=== PATIENT | female | born 1965 | race Caucasian/White ===

== ENCOUNTER → 2018-12-15 | Outpatient (CLI) | payer OTHER ==
[~2018-12-15] VITALS: Ht 157.5 cm; Wt 88.8 kg
[~2018-12-15] MED LIST: AMLODIPINE BESY10 MG PO; CHANTIX0.5 MG PO; HUMALOG100 UNIT/1 SUBQ; HYDROCODON-ACE1 EAC7 PO; LEVEMIR SUBQ; MEDROLDOSEPACK PO; METFORMIN HCL500 MG PO; METHOCARBAMOL500 M2 PO; MOBIC15 MG PO; PRAVACHOL 20 MG20 M1 PO; TRAMADOL 50 MG50 MG PO; VALSARTAN-HCTZ1 EAC4 PO
[2018-12-15 14:15] VITALS: BP 157/76
--- NOTE | 2018-12-15 14:17 | NUR ---
Pain Clinic Assessment: 1. History of Osteoarthritis: Right Lower Extremity Right Upper Extremity History of Rheumatoid Arthritis: Not Applicable 2. Height: 5 ft. 2 in. 157.5 cm. Weight: 195.8 lb. oz. 88.814 kg. Patient's BMI: 35.8 3. Vital Signs: BP: 157/76 Pulse: 87 Resp: 16 Temp: 02 Sat: 97 ECG Mon: 4. Pain Intensity: 9 5. Fall Risk: Dizziness: N Needs help standing or walking: N Fallen in the last 3 months: N Fall risk comments: 6. Patient on Blood Thinner: None 7. History of Hypertension: Y 8. Opioid Therapy greater than 6 weeks: N Opiate Contract Signed: 9. Risk Assessment Tool Provided: 10. Functional Assessment Tool: 79/70 11. Recreational Drug Use: Never Drug Type: Tobacco Use: Current Every Day Smoker Tobacco Type: Cigarettes Amount or Packs/day: 3/4 How Many Years: 20 Alcohol Use: Yes Frequency: Special Occasions Quant: 2-3
== END | disposition home or self-care (01) ==
LOC: PAIN 08:05
DX: M25.551 Pain in right hip (principal); G89.29 Other chronic pain; I10 Essential (primary) hypertension; M19.90 Unspecified osteoarthritis, unspecified site; E11.9 Type 2 diabetes mellitus without complications; Z79.4 Long term (current) use of insulin; Z90.49 Acquired absence of other specified parts of digestive tract; Z98.890 Other specified postprocedural states

== ENCOUNTER → 2019-01-03 | Outpatient (CLI) | payer OTHER ==
[~2019-01-03] VITALS: Ht 157.5 cm; Wt 91.2 kg
[~2019-01-03] MED LIST changes: +LEVEMIR100 UNIT/1 SUBQ; +NORCO 10-325 T1 EACH PO; +TYLENOL EXTRA500 MG PO; +XARELTO10 MG PO
[2019-01-03 10:56] VITALS: BP 161/85
--- NOTE | 2019-01-03 11:05 | NUR ---
Pain Clinic Assessment: 1. History of Osteoarthritis: Right Lower Extremity Right Upper Extremity History of Rheumatoid Arthritis: Not Applicable 2. Height: 5 ft. 2 in. 157.5 cm. Weight: 201.0 lb. oz. 91.173 kg. Patient's BMI: 36.8 3. Vital Signs: BP: 161/85 Pulse: 95 Resp: 18 Temp: 02 Sat: 98 ECG Mon: 4. Pain Intensity: 6 5. Fall Risk: Dizziness: N Needs help standing or walking: N Fallen in the last 3 months: Y Fall risk comments: 6. Patient on Blood Thinner: None 7. History of Hypertension: Y 8. Opioid Therapy greater than 6 weeks: N Opiate Contract Signed: 9. Risk Assessment Tool Provided: 10. Functional Assessment Tool: 79/70 11. Recreational Drug Use: Never Drug Type: Tobacco Use: Current Every Day Smoker Tobacco Type: Cigarettes Amount or Packs/day: 1 How Many Years: 20 Alcohol Use: Yes Frequency: Special Occasions Quant:
--- NOTE | 2019-02-02 08:26 | HPC ---
[facility] [address] [place] [address] PAIN MANAGEMENT CONSULTATION Name: AMELIA GARCIA Room #: REG JESSE Ivette#: [id number] Admission: 01/03/19 Attend Phys: Long Mckeon MD Discharge: Date of : 69 Report #: [id number] THIS REPORT FOR: //name// CC: Long Mcodnnell DATE OF SERVICE: 01/03/2019 CHIEF COMPLAINT: Pain in the right hip. HISTORY: The patient is a 53-year-old female, who has been seen in the pain clinic. She has pain and discomfort involving her right hip. She notes that the pain has worsened over the last 6 months. 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 She is quite busy. She does quite a bit of walking. She has noticed that her pain is quite limiting. It involves her right hip and the pain radiates into the right groin area. She notes that her pain is problematic with going from a sitting to a standing position. She has some burning, shooting, aching, and pulling discomfort. She notes that it is sharp, it significantly limits her ability to engage in activities of daily living. Work is extremely difficult because of the severity of the pain. She has been seen in the Emergency Room. X-rays showed an arthritic component to her pain. She has not seen a surgeon. She has difficulty lifting her leg and sometimes has to lift her leg because of the weakness and numbness. The patient underwent an injection in the right hip joint under fluoroscopy. She returns today stating that her pain continues to be quite problematic. She is unable to walk and feels that she would not be able to continue with her job because of the severity of pain. CURRENT MEDICATIONS: Chantix 0.5 mg, the patient has just recently received this medication; Pravachol 20 mg, Glucophage 1000 mg daily, insulin subcutaneous sliding scale, Levemir subcutaneous sliding scale, amlodipine 10 mg daily, valsartan/hydrochlorothiazide 320/12.5, and Ultram 50 mg q.4-6 hours p.r.n. pain. ALLERGIES: No known drug allergies. PAIN CLINIC ASSESSMENT AND PQRS: 1. History of osteoarthritis: The patient has some arthritis in the lower extremity on the right as well as the right upper extremity. She has not been treated for rheumatoid arthritis. 2. Pain intensity is 6/10. 3. Fall history: The patient has not fallen since we saw her last. 4. Blood thinner. The patient is not on a blood thinning medication. 5. Hypertension. The patient is being treated for hypertension. 6. Opioids greater than 6 weeks. The patient is not on an opioid regimen. 7. Risk assessment tool, low for opioid use. 8. Functional assessment tool, 70/70. [address] [address] PAIN MANAGEMENT CONSULTATION Name: AMELIA GARCIA Room #: REG CL Ivette#: [id number] Admission: 01/03/19 Attend Phys: Long Mckeon MD Discharge: Date of : 69 Report #: [id number] 9. Recreational drug use. The patient denies. 10. Tobacco: The patient smokes cigarettes 1 pack a day for the last 20 years. The patient is using Chantix to help decrease her smoking. 11. Alcohol. The patient occasionally uses alcoholic beverages. PHYSICAL EXAMINATION: GENERAL: The patient is a well-developed, well-nourished black female. She is alert and oriented x 3. Her affect is appropriate. Speech is fluent. Height is 5 feet 2 inches, weight is 201 pounds, and BMI is 36.8. VITAL SIGNS: Blood pressure is 161/85, pulse is 95, respiratory rate is 18, and room air saturation 98%. HEENT: Normocephalic, atraumatic. Extraocular eye muscles intact. Sclerae nonicteric. Mucous membranes are moist. NECK: Without adenopathy or JVD. HEART: Regular rate. ABDOMEN: Nontender. Bowel sounds present. LUNGS: Generally, clear to auscultation. MUSCULOSKELETAL: Upper extremity muscle strength is judged to be 5-/5 for the major muscle groups in the upper extremity. She has some pain, a well-healed scar in the right shoulder. The patient has an antalgic gait. Internal and external rotation of the patient's hip does cause some increased pain in the hip area as well as pain radiating into the groin. She has some difficulty lifting her leg because of the pain on the right side. Internal and external rotation cause increased discomfort into the groin area. IMPRESSION: 1. Right hip pain described by x-ray in the Emergency Room, has severe osteoarthritis. 2. Hypertension. 3. Diabetes. 4. Hypercholesterolemia. 5. Tobacco use. RECOMMENDATIONS: We have discussed treatment options with the patient. At this juncture, she feels that her pain continues to be quite problematic. I think to have the patient see a hip specialist, an Orthopedics would be reasonable. We have called Dr. Marino Canas at [facility]. She has an orthopedic surgeon and has quite a bit of expertise in hip joints. We will have the patient follow up with him in the near future. Hopefully, things continue to improve. [facility] [address] [place] [address] PAIN MANAGEMENT CONSULTATION Name: AMELIA GARCIA Room #: REG JESSE Steele#: [id number] Admission: 01/03/19 Attend Phys: Long Mckeon MD Discharge: Date of : 69 Report #: [id number] We would like to thank you for letting us to participate in her care. We hope she continues to improve as time goes on. <ELECTRONICALLY SIGNED> By: Long Mckeon MD 02/02/19825 56 7 Long Mckeon MD /[facility]
== END ==
LOC: PAIN 06:58
DX: M25.551 Pain in right hip (principal); I10 Essential (primary) hypertension; E11.9 Type 2 diabetes mellitus without complications; E78.00 Pure hypercholesterolemia, unspecified; F17.200 Nicotine dependence, unspecified, uncomplicated; Z79.899 Other long term (current) drug therapy; Z79.891 Long term (current) use of opiate analgesic

== ENCOUNTER → 2019-02-05 | Outpatient (CLI) | payer OTHER ==
[~2019-02-05] VITALS: Ht 157.5 cm; Wt 88.5 kg
[2019-02-05 09:42] LABS: URINE BILIRUBIN NEGATIVE (Negative); URINE BLOOD TRACE (Negative); URINE CLARITY CLEAR; URINE COLOR YELLOW; URINE GLUCOSE-RANDOM* NEGATIVE (Negative); URINE KETONES NEGATIVE (Negative); URINE LEUKOCYTES-REFLEX NEGATIVE (Negative); URINE NITRITE-REFLEX NEGATIVE (Negative); URINE PROTEIN (DIPSTICK) NEGATIVE (Negative); URINE SPECIFIC GRAVITY <= 1.005 (1.005-1.035); URINE UROBILINOGEN 0.2 E.U./dl (0.2-1.0)
[2019-02-05 10:05] LABS: HEMATOCRIT 35.2 % (37.0-47.0); HEMOGLOBIN 10.4 gm/dL (12.0-15.0); MCH 20.6 pg (26.0-34.0); MCHC 29.7 g/dL (28.0-37.0); MCV 69.5 fL (80.0-100.0); RBC 5.05 mil/uL (4.20-5.00); RDW 19.3 % (10.5-14.5); WBC 14.8 thou/uL (4.0-11.0)
[2019-02-05 10:09] LABS: ALBUMIN 3.6 g/dL (3.4-5.0); CREATININE 0.4 mg/dL (0.6-1.0); POTASSIUM 3.8 mmol/L (3.5-5.1)
[2019-02-05 10:10] LABS: PROTIME 10.3 Seconds (9.3-11.4)
[2019-02-06 00:06] LABS: GLYCOHEMOGLOBIN (HGB A1C) 6.6 % (4.8-5.6)
--- NOTE | 2019-02-06 07:51 | EKG ---
[address] [address] ELECTROCARDIOGRAM REPORT Name: GARCIAAMELIA Room #: PRE IN [facility]#: [id number] Admission: Attend Phys: Isaak Maya MD Discharge: Date of : 69 Report #: [id number] THIS REPORT FOR: //name// [facility] Test Date: 2019-02-05 Test Time: 09:17:03 Pat Name: AMELIA GARCIA Department: Room: Gender: F Research Associate Molecular Biology: ASHELY BASURTO : 1965 Requested By: Isaak Maya Order Number: [id number] MD: Carroll Hernandez Measurements Intervals Carlotta Rate: 77 P: 73 [place]: 138 QRS: 23 QRSD: 100 T: 39 QT: 376 QTc: 426 Interpretive Statements Sinus rhythm Normal tracing No previous ECG available for comparison Electronically Signed On 02-06-2019 7:51:20 CDT by Carroll Hernandez [email or web address] <ELECTRONICALLY SIGNED> By: Carroll Hernandez MD, [facility] 02/06/19 0751 [id number] [id number] Carroll Hernandez MD, FACC /EPI
== END ==
LOC: PAC 09:19 → EDSTATUS 02-12 07:47 → PRE 02-12 08:14
PROVIDERS: Orthopaedic Surgery
DX: M16.11 Unilateral primary osteoarthritis, right hip (principal); R94.31 Abnormal electrocardiogram [ECG] [EKG]

== ENCOUNTER 2019-03-02 07:14 | Inpatient (IN) | payer OTHER ==
[2019-03-02] VITALS (9 sets, daily range): BP systolic 110–141; BP diastolic 44–63
[~2019-03-02] VITALS: Ht 157.5 cm; Wt 88.5 kg
[~2019-03-02 07:14] MED LIST changes: -NORCO 10-325 T1 EACH PO; -XARELTO10 MG PO
--- NOTE | 2019-03-02 13:10 | NUR ---
ASSESSMENT-PT LIVES AT HOME AND HER SON AND DTR STAY WITH HER. HER SISTER HAS BEEN STAYING THERE TOO. PT SAYS SHE HAS MANY STEPS IN HER PLCE AND PLANS TO GO STAY AT HER DTR'S PLACE WHERE THERE WILL BE LESS STEPS. PT WILL NEED A ROLLER WALKER FOR HOME. PT HAD BEEN USING A CANE PRIOR TO ADMISSION. AWAITING PHY THERAPY REC FOR DC PLANNING. ANTICIPATE PT WILL START OUTPT THERAPY NEXT WEEK. FOLLOWING.
--- NOTE | 2019-03-02 19:41 | NUR ---
PATIENT ADMITTED FROM OR, DR TIAN DID RIGHT TOTAL HIP REPLACEMENT, WITH SABINA DRESSING IN PLACE, ALSO HEMOVAC IN PLACE, PARVEZ HOSE, AND SCD'S IN PLACE. PATIENT HAS LEFT HAND IV WITH 1/2 NS AT 100CC/HR, PATIENT RECEIVE 1 IV ANTIBIOTIC THIS SHIFT. PATIENT CONTINUES TO C/O PAIN, RECEIVED THIS SHIFT MORPHINE 2 MG IV X2 AND OXYCODONE 1 TABLET X 1. PATIENT WORKED WITH PT/HAFSA AND WALKED ABOUT 15 FEET, PATIENT WAS ASSISTED UP TO BSC X 1. ADMISSION COMPLETED, BUT CAREPLAN WILL BE DONE BY KIRSITN/DELMER/ASHELY.POST OP VITALS SIGNS DONE ARE ARE STABLE. WILL CONTINUE TO MONITOR.
[2019-03-03 00:05] VITALS: BP 98/56
[2019-03-03 04:00] VITALS: BP 110/50
[2019-03-03 05:35] LABS: HEMATOCRIT 24.6 % (37.0-47.0); HEMOGLOBIN 7.4 gm/dL (12.0-15.0); MCH 20.9 pg (26.0-34.0); MCV 69.7 fL (80.0-100.0); RBC 3.53 mil/uL (4.20-5.00); RDW 19.4 % (10.5-14.5); WBC 22.8 thou/uL (4.0-11.0)
[2019-03-03 06:27] VITALS: BP 90/48
--- NOTE | 2019-03-03 07:32 | NUR ---
PATIENT ALERT AND ORIENTED X4. UP TO BSC WITH ONE ASSIST AND WALKER. KNEE HIGH PARVEZ HOSE AND SCD'S IN PLACE. IVF X2 BAGS PER ORDER. HOWEVER, PATIENT'S BLOOD PRESSURE WAS A LITTLE LOW AND IVF WAS EXTENDED TO ANOTHER LITER THROUGHOUT THE NIGHT WHICH IS STILL HANGING AT TIME OF NOTE. AM NURSE NOTIFIED. BS MONITORED PER ORDER. MEDICATED FOR PAIN THROUGHOUT THE NIGHT. PATIENT COOPERATIVE AND PLEASANT. TAKEN OFF OF 02NC WITH SAT OF 93 ON ROOM AIR. HEMOVAC IN PLACE WITH OUTPUT OF 110ML DURING THE NIGHT. RESTING QUIETLY. NO C/O NAUSEA. WILL MONITOR.
--- NOTE | 2019-03-03 10:55 | O ---
[facility] [place] [address] [place] [address] OPERATIVE REPORT Name: AMELIA GARCIA Room #: 442-P ADM IN M.R.#: [id number] Admission: 03/02/19 Attend Phys: Isaak Maya MD Discharge: Date of : 69 Report #: [id number] THIS REPORT FOR: //name// CC: Isaak Mcdonnell DATE OF SERVICE: 03/02/2019 PREOPERATIVE DIAGNOSIS: Degenerative osteoarthritis, right hip. POSTOPERATIVE DIAGNOSIS: Degenerative osteoarthritis, right hip. PROCEDURE: Right total hip arthroplasty. HISTORY: This 54-year-old female has rather severe progressive right hip pain with clinical and radiographic evidence of severe degenerative arthritis. She is heavy and has a rather small hip joint and as a result has rather excessive wear with significant joint space narrowing and spurring. Findings are confirmed on preoperative MRI scan. We have discussed more conservative treatment options. The patient and family feel she is simply unable to function and work effectively. 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 Given this, she has elected to go ahead with total hip arthroplasty. DESCRIPTION OF PROCEDURE: The patient was taken to the operating room where she was placed under general anesthesia. Prophylactic intravenous antibiotics were administered. She was turned to the left lateral decubitus position. The right hip, thigh and leg were meticulously prepped and draped. A slightly curving posterolateral skin incision was made. Exposure was established with some difficulty given her very large size and abundant adipose tissue. The fascia was exposed and incised. The gluteus was split gently in a longitudinal fashion. The posterior aspect of the hip was visualized. Short external rotators and capsule were taken down and preserved and tagged with several sutures. The hip was dislocated posteriorly and marked degenerative change on both the femoral head and acetabulum was noted. The femoral canal was prepared with reamers and hand broaches. A size 12 Kim and Nephew stem seemed to fit most appropriately. The trial broach was advanced to an appropriate level and the calcar was trimmed down to that level. The trial broach was removed and attention directed to the acetabulum. Adequate exposure was established, although with significant difficulty given her very large size. She also had moderate oozing throughout the entire procedure, making visualization somewhat difficult. The acetabulum was sequentially reamed, gradually advancing to a 46 mm reamer. Her small size made preparation of the acetabulum difficult. I needed to medialize to get sufficient rim to engage even the smallest acetabulum, which is a size 46. A trial reduction looked good and the permanent cup was brought onto the field. This is a Kim and Nephew size 46 3-hole [facility] [address] [place] [address] OPERATIVE REPORT Name: AMELIA GARCIA Room #: 442-P [facility] IN M.R.#: [id number] Admission: 03/02/19 Attend Phys: Isaak Maya MD Discharge: Date of : 69 Report #: [id number] STIKTITE shell. This was impacted in alignment with her true acetabulum, positioned this at about 45 degrees off of vertical and about 20 degrees of anteversion. It seated nicely and appeared to be secure. Two cancellous screws were placed through the apex holes engaging good periacetabular bone adding to the stability. A cup liner was then inserted using the 28 mm diameter liner and positioning the 20-degree elevated rim at about the 10 o'clock posterior position. This was snapped into place and seated nicely and appeared to be secure. The size 12 high offset femoral stem was selected. This was impacted into the canal. It seated nicely and appeared to be secure. A trial reduction was performed and a +0 neck length seemed to fit most appropriately. This resulted in good leg length and appropriate range of motion, alignment, and stability. The trial head was removed and the permanent 28 mm Oxinium head with a +0 neck length was selected. This was impacted on the Olivier taper. It seated nicely and appeared to be secure. The hip was reduced. Alignment, range of motion, stability and leg length were assessed and felt to be satisfactory. The capsule and short external rotators were then repaired back to bone using #1 FiberWire suture passed through small drill holes in the greater trochanter. This resulted in a satisfactory hip stability. A single Hemovac was left in the wound exiting through a separate stab incision. The fascia was then closed with multiple #1 Vicryl sutures. The abundant adipose layer was closed with multiple 0 Monocryl sutures in a running fashion. The skin was closed with skin rah. A sterile dressing was applied. The patient was then awakened and returned to recovery room in good condition. Her estimated blood loss was 700 mL. She received some albumin and fluids during the procedure and appeared to be stable. Postoperative hemoglobin is pending at the time of this dictation. <ELECTRONICALLY SIGNED> By: Isaak Maya MD 03/03/19 1055 [id number] [id number] Isaak Maya MD /nt
--- NOTE | 2019-03-03 13:07 | NUR ---
PT A&OX4. IV INTACT IN L HAND. AMBULATING WITH WALKER AND ASSIST X1. SABINA DRSG WITH A FEW SM DRIED AREAS. ALTERNATING PO PAIN MEDS. STATES PAIN AT 8/10 AT THIS TIME. HEMOVAC REOVED THIS AM. FAMILY AT THE BEDSIDE. WILL CONT POC.
[2019-03-03 16:48] VITALS: BP 101/49
[2019-03-03 20:40] VITALS: BP 122/35
--- NOTE | 2019-03-04 04:13 | NUR ---
PATIENT ALERT AND ORIENTED X4. UP WITH ONE ASSIST AND WALKER TO THE BATHROOM. MEDICATED FOR RIGHT HIP PAIN DURING THE NIGHT AND ABLE TO SLEEP. BS MONITORED PER ORDER. COOPERATIVE WITH CARE. RESTING QUIETLY. WILL MONITOR.
[2019-03-04 04:25] VITALS: BP 129/56
[2019-03-04 05:31] LABS: HEMATOCRIT 23.5 % (37.0-47.0); MCH 20.7 pg (26.0-34.0); MCHC 29.9 g/dL (28.0-37.0); MCV 69.3 fL (80.0-100.0); RBC 3.39 mil/uL (4.20-5.00); RDW 19.8 % (10.5-14.5); WBC 18.3 thou/uL (4.0-11.0)
[2019-03-04 08:53] VITALS: BP 129/45
[2019-03-04 16:41] VITALS: BP 130/47
--- NOTE | 2019-03-04 18:39 | NUR ---
PT HAS WORKED WITH THERAPY AMBULATING THE HALLS. GIVEN PRN PAIN MED THAT HAS BEEN EFFECTIVE. APPETITE GOOD. ON ROOM AIR, PICCO DRAIN INTACT. USES ICE BAG. SBA ASSIST WHEN PATIENT USES BATHROOM. PT PLEASANT AND COOPERATIVE WITH CARE.
[2019-03-04 19:15] VITALS: BP 120/50
[2019-03-05] VITALS (7 sets, daily range): BP systolic 121–143; BP diastolic 41–57
--- NOTE | 2019-03-05 06:30 | NUR ---
PATIENT ALERT AND ORIENTED X4. UP TO BATHROOM WITH SBA AND WALKER. MEDICATED FOR PAIN DURING THE NIGHT WITH GOOD RESULTS. PATIENT SLEPT MOST OF THE NIGHT. BLOOD SUGAR MONITORED PER ORDER. RESTING QUIETLY. WILL MONITOR.
[2019-03-05 07:01] LABS: HEMATOCRIT 22.8 % (37.0-47.0); HEMOGLOBIN 6.8 gm/dL (12.0-15.0); MCH 20.7 pg (26.0-34.0); MCHC 29.8 g/dL (28.0-37.0); MCV 69.5 fL (80.0-100.0); RBC 3.28 mil/uL (4.20-5.00); RDW 20.2 % (10.5-14.5); WBC 16.6 thou/uL (4.0-11.0)
--- NOTE | 2019-03-05 11:17 | NUR ---
PT A&OX4. IV INTACT IN L HAND. AMBULATING WITH WALKER AND PT IN HALLWAY. SABINA DRSG INTACT TO R HIP. TOLERATING PO MEDS FOR PAIN. PLANS ARE FOR POSSIBLE DC TODAY.
[2019-03-05] MEDS ORDERED: NORCO 10-325 T1 EACH PO (12:46)
[2019-03-05] MEDS ORDERED: XARELTO10 MG PO (12:46)
--- NOTE | 2019-03-05 14:24 | NUR ---
DISCUSSED DC OPTIONS WITHPT THIS AM- EITHER HOME WITH HH SERVICES OR HOME WITH OUTPT SERVICES AND FAMILY SUPPORT. OFFERED PT DME OPTIONS AND SHE CHOSE [employer]. ASKED ARSH TO ISSUE PT A ROLLER WALKER FOR HOME TODAY. PT WILL GO HOME WITH HH SERVICES TODAY AND CHOSE [facility] .
--- NOTE | 2019-03-05 15:59 | NUR ---
FAXED REFERRAL TO [facility] SPOKE WITH PERLA IN INTAKE SHE RECEIVED REFERRAL AND CAN ACCCEPT PT. FAXED DC ORDERS/SUMMARY TO [facility] AND RECEIVED CONFIRMATION AND SPOKE WITH KG SHE WILL NOTIFY PT TIME OF VISITS.
--- NOTE | 2019-03-05 17:32 | NUR ---
DC ORDERS RECEIVED. IV REMOVED FROM L AHND. DC INSTRUCTIONS, SCRIPTS AND F/U APPOINTMENT REVIEWED PT. PT WILL LEAVE BY W/C TO MAIN ENTRANCE AFTER DINNER.
== END 2019-03-05 18:41 | disposition home health service (06) | DRG 470 ==
LOC: TBA 07:14 → 4S 07:14 → PRE 08:05 → 4S 12:02 → PRE 14:10 → 4S 03-05 18:41
PROVIDERS: ADMIT Orthopaedic Surgery
PROC: 0SR906Z Replacement of Right Hip Joint with Oxidized Zirconium on Polyethylene Synthetic Substitute, Open Approach (ICD-10-PCS; principal; 2019-03-02)
DX: M16.11 Unilateral primary osteoarthritis, right hip (principal); I10 Essential (primary) hypertension; F17.200 Nicotine dependence, unspecified, uncomplicated; E11.9 Type 2 diabetes mellitus without complications; E78.5 Hyperlipidemia, unspecified; Z79.84 Long term (current) use of oral hypoglycemic drugs; D64.9 Anemia, unspecified
CPT/HCPCS: 10102; 50010; 50101; 50382; 50414; 51412; 53000; 53368; 56521; 56524; 56525; 56530; 57095; 62110; 62900; 70005